=== PATIENT | male | born 1960 | race Caucasian/White ===

== ENCOUNTER 2019-11-29 07:00 | Outpatient (CLI) | payer MEDICARE, SELFPAY ==
[2019-11-29 07:15] LABS: Add Urine Microscopic? NO; Appearance Urine Clear (Clear); Basophils Absolute Auto 0.05 K/mm3 (0.00-0.10); Basophils Percent Auto 0.6 % (0.0-1.0); Bilirubin Urine Negative (Negative); Blood Urine Negative (Negative); Color Urine Yellow (Yellow); Eosinophils Absolute Auto 0.19 K/mm3 (0.02-0.50); Eosinophils Percent Auto 2.4 % (1.0-6.0); Glucose Urine UA Negative (Negative); Hematocrit 47.1 % (40.0-54.0); Immature Granulocyte Absolute 0.03 K/mm3 (0.00-0.00); Immature Granulocyte Percent A 0.4 % (0.0-0.0); Ketones Urine Negative (Negative); Leukocyte Esterase Ur Negative (Negative); Lymphocytes Absolute Auto 2.46 K/mm3 (1.10-4.50); Lymphocytes Percent Auto 31.1 % (18.0-42.0); Mean Corpuscular Hemoglobin 31.4 pg (27.0-31.0); Mean Corpuscular Volume 92.5 fL (78.0-102.0); Mean Platelet Volume 9.5 fl (8.7-11.0); Monocytes Absolute Auto 0.82 K/mm3 (0.10-0.90); Monocytes Percent Auto 10.4 % (2.0-11.0); Neutrophils Absolute Auto 4.4 K/mm3 (1.7-7.2); Neutrophils Percent Auto 55.1 % (50.0-70.0); Nitrate Urine Negative (Negative); Platelet Count Result 231 K/mm3 (150-420); Protein Urine Negative (Negative); Red Blood Count 5.09 M/mm3 (4.70-6.10); Red Cell Distribution Width 12.1 % (11.6-14.4); Specific Grav Ur 1.025 (1.010-1.020); Urobilinogen Urine 0.2 mg/dL (0.2-1.0); White Blood Count 7.9 K/mm3 (4.8-10.8); pH Urine 5.5 (5.0-8.0)
[2019-11-29 07:23] LABS: Creatinine Urine 152.87 mg/dL (40-278)
[2019-11-29 07:25] LABS: Hemoglobin A1C 6.1 % (<5.7)
[2019-11-29 07:29] LABS: MALB Creatinine Ratio 13.1 mg/g (0-30); Microalbumin Urine Random 20.1 mg/L
[2019-11-29 08:04] LABS: Alanine Aminotransferase 49 U/L (16-63); Albumin Level 3.9 g/dL (3.4-5.0); Alkaline Phosphatase 65 U/L (46-116); Anion Gap 14.3 mmol/L (7-16); Aspartate Amino Transferase 27 U/L (15-37); Bilirubin,Total 0.4 mg/dL (0.00-1.00); Blood Urea Nitrogen 13 mg/dL (7-18); Calcium 9.1 mg/dL (8.5-10.1); Carbon Dioxide 27 mmol/L (21-32); Chloride 105 mmol/L (98-108); Cholesterol 134 mg/dL (0-200); Creatine Kinase 197 U/L (39-308); Estimated Glomerular Filt Rate > 60; Glucose 99 mg/dL (70-99); HDL Direct 49 mg/dL (40-60); LDL Cholesterol Calculated 67 mg/dL (<130); Osmolality Calculated 294 mOsm/kg (285-295); Potassium 4.3 mmol/L (3.5-5.1); Sodium 142 mmol/L (136-145); Total Protein 7.5 g/dL (6.4-8.2); Triglycerides 92 mg/dL (0-150)
== END 2019-11-29 07:01 | disposition home or self-care (01) ==
PROVIDERS: PCP Internal Medicine; Visit Provider Internal Medicine
DX: E78.2 Mixed hyperlipidemia (principal); E11.9 Type 2 diabetes mellitus without complications; I10 Essential (primary) hypertension; E72.12 Methylenetetrahydrofolate reductase deficiency
CPT/HCPCS: 36415; 80053; 80061; 81003; 82043; 82550; 83036; 85025

== ENCOUNTER 2020-09-07 10:08 | Outpatient (CLI) | payer MEDICARE, SELFPAY ==
[2020-09-07 11:09] LABS: SARS-CoV-2 Ag Positive (Negative)
== END 2020-09-07 10:09 | disposition home or self-care (01) ==
LOC: CHSLAB 10:11
PROVIDERS: PCP Internal Medicine; Visit Provider Internal Medicine
DX: U07.1 COVID-19 (principal)
CPT/HCPCS: 87426

== ENCOUNTER 2020-12-21 07:17 | Outpatient (CLI) | payer MEDICARE, SELFPAY ==
[2020-12-21 07:27] LABS: Basophils Absolute Auto 0.05 K/mm3 (0.00-0.10); Basophils Percent Auto 0.6 % (0.0-1.0); Eosinophils Absolute Auto 0.21 K/mm3 (0.02-0.50); Eosinophils Percent Auto 2.5 % (1.0-6.0); Hematocrit 46.3 % (40.0-54.0); Hemoglobin 15.8 g/dL (14.0-18.0); Immature Granulocyte Absolute 0.04 K/mm3 (0.00-0.00); Immature Granulocyte Percent A 0.5 % (0.0-0.0); Lymphocytes Absolute Auto 2.62 K/mm3 (1.10-4.50); Lymphocytes Percent Auto 31.2 % (18.0-42.0); Mean Corpuscular HGB Conc 34.1 g/dL (32.0-36.0); Mean Corpuscular Hemoglobin 32.6 pg (27.0-31.0); Mean Corpuscular Volume 95.7 fL (78.0-102.0); Mean Platelet Volume 9.2 fl (8.7-11.0); Monocytes Absolute Auto 0.74 K/mm3 (0.10-0.90); Monocytes Percent Auto 8.8 % (2.0-11.0); Neutrophils Absolute Auto 4.7 K/mm3 (1.7-7.2); Neutrophils Percent Auto 56.4 % (50.0-70.0); Platelet Count Result 241 K/mm3 (150-420); Red Blood Count 4.84 M/mm3 (4.70-6.10); Red Cell Distribution Width 12.4 % (11.6-14.4); White Blood Count 8.4 K/mm3 (4.8-10.8)
[2020-12-21 07:37] LABS: Hemoglobin A1C 5.7 % (<5.7)
[2020-12-21 07:41] LABS: Add Urine Microscopic? NO; Appearance Urine Clear (Clear); Bilirubin Urine Negative (Negative); Blood Urine Negative (Negative); Color Urine Yellow (Yellow); Glucose Urine UA Negative (Negative); Ketones Urine Negative (Negative); Leukocyte Esterase Ur Negative LEU/UL (Negative); Nitrate Urine Negative (Negative); Protein Urine Negative (Negative); Specific Grav Ur 1.025 (1.010-1.020); Urobilinogen Urine 0.2 mg/dL (0.2-1.0); pH Urine 5.5 (5.0-8.0)
[2020-12-21 08:04] LABS: Creatinine Urine 135.58 mg/dL (40-278); MALB Creatinine Ratio 10.1 mg/g (0-30); Microalbumin Urine Random 13.8 mg/L
[2020-12-21 08:13] LABS: Alanine Aminotransferase 61 U/L (16-63); Albumin Level 3.6 g/dL (3.4-5.0); Alkaline Phosphatase 58 U/L (46-116); Anion Gap 6 mmol/L (8-16); Aspartate Amino Transferase 32 U/L (15-37); Bilirubin,Total 0.4 mg/dL (0.00-1.00); Blood Urea Nitrogen 15 mg/dL (7-18); Calcium 9.2 mg/dL (8.5-10.1); Carbon Dioxide 31 mmol/L (21-32); Chloride 104 mmol/L (98-108); Cholesterol 150 mg/dL (0-200); Creatine Kinase 150 U/L (39-308); Estimated Glomerular Filt Rate > 60; Glucose 102 mg/dL (70-99); HDL Direct 49 mg/dL (40-60); LDL Cholesterol Calculated 67 mg/dL (<130); Osmolality Calculated 292 mOsm/kg (285-295); Potassium 4.4 mmol/L (3.5-5.1); Sodium 141 mmol/L (136-145); Total Protein 7.2 g/dL (6.4-8.2); Triglycerides 170 mg/dL (0-150)
== END 2020-12-21 07:18 | disposition home or self-care (01) ==
LOC: CHSLAB 07:19
PROVIDERS: PCP Internal Medicine; Visit Provider Internal Medicine
DX: E11.9 Type 2 diabetes mellitus without complications (principal); E78.5 Hyperlipidemia, unspecified; I10 Essential (primary) hypertension
CPT/HCPCS: 36415; 80053; 80061; 81003; 82043; 82550; 83036; 85025

== ENCOUNTER → 2021-02-22 01:55 | Outpatient (CLI) | payer MEDICARE, SELFPAY ==
[2021-02-22 17:04] LABS: SARS-CoV-2 RNA PCR Negative
== END ==
PROVIDERS: PCP Internal Medicine; Visit Provider Internal Medicine Gastroenterology
DX: Z01.812 Encounter for preprocedural laboratory examination (principal); Z20.822 Contact with and (suspected) exposure to COVID-19
CPT/HCPCS: C9803; U0003; U0005

== ENCOUNTER 2021-02-25 00:45 | Day surgery (SDC) | payer MEDICARE, SELFPAY ==
[2021-02-12 10:36] VITALS: BMI 30.4
[2021-02-25 08:12] VITALS: BP 164/88; PULSE 93; RESP 18; TEMP 36.3; O2SAT 99; BMI 38.5
[2021-02-25] MEDS: LACTATED RINGERS 1,000 ML 150 ML IV CONT (08:23)
--- NOTE | 2021-02-25 08:32 | WPDGICN ---
GI Consult Note Consult date/time: 02/25/21 08:32 HPI: reason for visit is colonoscopy. This very pleasant gentleman seen in consultation request of the primary physician. Impression: Screening and surveillance colonoscopy. The patient has history of multiple adenomatous colon polyps and a family history of colon cancer. Obesity. HTN. HLD. Obesity. Recommendation: Colonoscopy. History: This very pleasant gentleman is a negative GI review of systems. He is here for screening and surveillance colonoscopy. He has a history of multiple adenomatous colon polyps and a family history of colon cancer. Patient is [id number]. Physical examination: General: very pleasant patient in no acute distress. HEENT: Head was normocephalic sclerae is clear mouth without masses neck was supple. Heart: Rate rhythm regular without S3 or S4. Lungs: CTA. Abdomen: Soft with no guarding or rigidity. Bowel sounds were active. Neurologic: Cranial nerves 2 through 12 intact. No focal defects. No clonus. Musculoskeletal system: Revealed no joint tenderness or swelling no muscle atrophy. Extremities: Reveal no significant edema. Skin: Warm and dry with normal turgor. Mental status: intact. Patient is alert and oriented. Review of Systems Review of Systems: All systems reviewed & are unremarkable except as noted in HPI and below PMFSH Social History Social History Smoking status: Never smoker Alcohol intake: current Drinks per week: 25 Substance use: never Substance use type: does not use Living arrangements: alone Spiritual care concerns: No Meds Home Medications and Allergies Home Medications Medication Instructions Recorded Confirmed Type aspirin 325 mg PO DAILY 02/12/21 02/12/21 History folic acid 1 mg PO DAILY 02/12/21 02/12/21 History lisinopril 20 mg PO DAILY 02/12/21 02/12/21 History metoprolol succinate 25 mg PO DAILY 02/12/21 02/12/21 History mv,Ca,iez-uexl-XC-lycopene tablet PO 02/12/21 History [Centrum Men] potassium 99 mg PO DAILY 02/12/21 02/12/21 History simvastatin 20 mg PO DAILY 02/12/21 02/12/21 History Allergies Allergy/AdvReac Type Severity Reaction Status Date / Time Penicillins Allergy Unknown Rash Verified 02/25/21 08:11 Vital Signs Vital Signs - 24 hr 02/25/21 08:12 Temperature 36.3 C L Pulse Rate 93 Respiratory Rate 18 Blood Pressure 164/88 H Pulse Oximetry 99
--- NOTE | 2021-02-25 09:14 | WPDANESEPPF ---
Anes - Initial Pre Proc Eval Procedure: Operation Date: 02/25/21 09:30 Proposed Procedures p Screening Colonoscopy - Forest Dietz DO Date/Time: 02/25/21 09:14 Surgeon: Forest Dietz DO Pre Op Diagnosis: hx of colon polyps Patient Data Age: 60 Gender: M Height: 5 ft 8 in Weight: 114.9 kg Last Vital Signs Temp 97.3 F L 02/25/21 08:12 Pulse 93 02/25/21 08:12 Resp 18 02/25/21 08:12 BP 164/88 H 02/25/21 08:12 Pulse Ox 99 02/25/21 08:12 Allergies Allergy/AdvReac Type Severity Reaction Status Date / Time Penicillins Allergy Unknown Rash Verified 02/25/21 08:11 Home Medications Medication Instructions Recorded Confirmed Type aspirin 325 mg PO DAILY 02/12/21 02/12/21 History folic acid 1 mg PO DAILY 02/12/21 02/12/21 History lisinopril 20 mg PO DAILY 02/12/21 02/12/21 History metoprolol succinate 25 mg PO DAILY 02/12/21 02/12/21 History mv,Ca,rbc-oejc-OB-lycopene tablet PO 02/12/21 History [Centrum Men] potassium 99 mg PO DAILY 02/12/21 02/12/21 History simvastatin 20 mg PO DAILY 02/12/21 02/12/21 History Patient hx anesthesia problems: none Family hx anesthesia problems: none [facility] Past Medical History Medical History (Updated 02/25/21 @ 09:08 by Jevon Archer MD) Hyperlipidemia Hypertension Social History Social History Smoking status: Never smoker Alcohol intake: current Drinks per week: 25 Substance use: never Substance use type: does not use Living arrangements: alone Spiritual care concerns: No Anes - Eval Final PreProcedure Day of Procedure 02/25/21 09:14 Patient weight: obese Heart: regular rate and rhythm Lungs: clear to auscultation Airway: Mallampati scale class III Neurological: alert and oriented Last oral intake: >/= 8 hours ASA classification: III Emergent: no Anesthetic plan: proceed Anesthesia type and monitoring: general GIVS and standard monitoring Informed Consent: The patient's anesthetic plan and its attendant risks and benefits were discussed with the patient/family/POA. Questions were solicited and answers provided to the satisfaction of the patient/family/POA.
[2021-02-25 09:50] VITALS: BP 134/84; PULSE 73; RESP 23; O2SAT 95
[2021-02-25 10:00] VITALS: BP 140/85; PULSE 83; RESP 22; O2SAT 98
[2021-02-25 10:10] VITALS: BP 167/97; PULSE 80; RESP 22; O2SAT 99
== END 2021-02-25 10:15 | disposition home or self-care (01) ==
PROVIDERS: PCP Internal Medicine; Visit Provider Internal Medicine Gastroenterology
PROC: 0DJD8ZZ Inspection of Lower Intestinal Tract, Via Natural or Artificial Opening Endoscopic (ICD-10-PCS; CPT 45378; principal; 2021-02-25 09:30)
DX: Z12.11 Encounter for screening for malignant neoplasm of colon (principal); Z86.010 Personal history of colon polyps; I10 Essential (primary) hypertension; E78.5 Hyperlipidemia, unspecified; Z79.82 Long term (current) use of aspirin; E66.9 Obesity, unspecified; Z68.38 Body mass index [BMI] 38.0-38.9, adult
CPT/HCPCS: G0105; J2704; J7120

== ENCOUNTER 2021-07-08 07:04 | Outpatient (CLI) | payer MEDICARE, SELFPAY ==
[2021-07-08 07:47] LABS: Hemoglobin A1C 5.9 % (<5.7)
[2021-07-08 08:50] LABS: Alanine Aminotransferase 67 U/L (16-63); Albumin Level 3.8 g/dL (3.4-5.0); Alkaline Phosphatase 69 U/L (46-116); Anion Gap 7 mmol/L (8-16); Aspartate Amino Transferase 39 U/L (15-37); Bilirubin,Total 0.3 mg/dL (0.00-1.00); Blood Urea Nitrogen 9 mg/dL (7-18); Calcium 8.8 mg/dL (8.5-10.1); Carbon Dioxide 31 mmol/L (21-32); Chloride 106 mmol/L (98-108); Cholesterol 122 mg/dL (0-200); Creatine Kinase 135 U/L (39-308); Estimated Glomerular Filt Rate > 60; Glucose 100 mg/dL (70-99); HDL Direct 50 mg/dL (40-60); LDL Cholesterol Calculated 56 mg/dL (<130); Osmolality Calculated 296 mOsm/kg (285-295); Potassium 4.6 mmol/L (3.5-5.1); Prostate Specific Antigen 1.1 ng/mL (< OR = 4.0); Sodium 144 mmol/L (136-145); Total Protein 7.1 g/dL (6.4-8.2); Triglycerides 78 mg/dL (0-150)
[2021-07-08 09:51] LABS: Add Urine Microscopic? NO; Appearance Urine Clear (Clear); Bilirubin Urine Negative (Negative); Blood Urine Negative (Negative); Color Urine Yellow (Yellow); Glucose Urine UA Negative (Negative); Ketones Urine Negative (Negative); Leukocyte Esterase Ur Negative (Negative); Nitrate Urine Negative (Negative); Protein Urine Negative (Negative); Specific Grav Ur 1.025 (1.010-1.020); Urobilinogen Urine 0.2 mg/dL (0.2-1.0); pH Urine 6.5 (5.0-8.0)
== END 2021-07-08 07:05 | disposition home or self-care (01) ==
LOC: CHSLAB 07:06
PROVIDERS: PCP Internal Medicine; Visit Provider Internal Medicine
DX: E11.9 Type 2 diabetes mellitus without complications (principal); I10 Essential (primary) hypertension; E78.2 Mixed hyperlipidemia; Z12.5 Encounter for screening for malignant neoplasm of prostate
CPT/HCPCS: 36415; 80053; 80061; 81003; 82550; 83036; 84153; G0103

== ENCOUNTER 2022-01-04 06:59 | Outpatient (CLI) | payer MEDICARE, SELFPAY ==
[2022-01-04 08:01] LABS: Alanine Aminotransferase 63 U/L (16-63); Albumin Level 3.9 g/dL (3.4-5.0); Alkaline Phosphatase 59 U/L (46-116); Anion Gap 7 mmol/L (8-16); Aspartate Amino Transferase 33 U/L (15-37); Bilirubin,Total 0.4 mg/dL (0.00-1.00); Blood Urea Nitrogen 13 mg/dL (7-18); Calcium 8.9 mg/dL (8.5-10.1); Carbon Dioxide 30 mmol/L (21-32); Chloride 103 mmol/L (98-108); Estimated Glomerular Filt Rate > 60; Glucose 95 mg/dL (70-99); Osmolality Calculated 290 mOsm/kg (285-295); Potassium 3.9 mmol/L (3.5-5.1); Sodium 140 mmol/L (136-145); Total Protein 7.2 g/dL (6.4-8.2)
== END 2022-01-04 07:00 | disposition home or self-care (01) ==
LOC: CHSLAB 07:01
PROVIDERS: PCP Internal Medicine; Visit Provider Internal Medicine
DX: R94.5 Abnormal results of liver function studies (principal)
CPT/HCPCS: 36415; 80053

== ENCOUNTER 2022-03-14 06:57 | Outpatient (CLI) | payer MEDICARE, SELFPAY ==
[2022-03-14 08:07] LABS: Anion Gap 7 mmol/L (8-16); Blood Urea Nitrogen 16 mg/dL (7-18); Calcium 9.2 mg/dL (8.5-10.1); Carbon Dioxide 28 mmol/L (21-32); Chloride 104 mmol/L (98-108); Estimated Glomerular Filt Rate > 60; Glucose 109 mg/dL (70-99); Osmolality Calculated 290 mOsm/kg (285-295); Sodium 139 mmol/L (136-145)
== END 2022-03-14 06:58 | disposition home or self-care (01) ==
LOC: CHSLAB 07:00
PROVIDERS: PCP Internal Medicine; Visit Provider Internal Medicine
DX: I10 Essential (primary) hypertension (principal)
CPT/HCPCS: 36415; 80048

== ENCOUNTER 2023-08-08 07:00 | Outpatient (CLI) | payer MEDICARE, SELFPAY ==
[2023-08-08 08:11] LABS: Vitamin B12 317 pg/mL (193-986)
[2023-08-11 05:08] LABS: Homocysteine 14.3 umol/L (<11.4)
[2023-08-22 13:58] LABS: Red Blood Cell Folate 509 ng/mL RBC (>280)
== END 2023-08-08 07:01 | disposition home or self-care (01) ==
LOC: CHSLAB 07:04
PROVIDERS: PCP Internal Medicine; Visit Provider Internal Medicine
DX: E72.12 Methylenetetrahydrofolate reductase deficiency (principal)
CPT/HCPCS: 36415; 82607; 82747; 83090

== ENCOUNTER 2023-10-18 08:49 | Outpatient (CLI) | payer MEDICARE, SELFPAY ==
--- NOTE | ~2023-10-18 | US_ITS ---
Limited Abdominal Sonogram: Real-time sonographic imaging of the right upper quadrant was performed. Clinical History: Abnormal liver enzymes Findings: The liver appears normal with no evidence of mass lesion or bile duct dilatation. Main por salima vein demonstrates normal direction of flow. The gallbladder is well distended, and appears normal with no evidence of gallstone or wall thickening. The common bile duct measures 3 mm. The visualize d pancreas, aorta, and IVC are unremarkable. Impression: Diffuse fatty infiltration of the liver. Reviewed, dictated and finalized at location [facility] [employer] Impression: Diffuse fatty infiltration of the liver.
== END 2023-10-18 08:50 | disposition home or self-care (01) ==
PROVIDERS: PCP Internal Medicine; Visit Provider Internal Medicine
DX: K76.0 Fatty (change of) liver, not elsewhere classified (principal); R94.5 Abnormal results of liver function studies
CPT/HCPCS: 76705

== ENCOUNTER 2024-08-12 00:18 | Day surgery (SDC) | payer MEDICARE, SELFPAY ==
[2024-08-01 12:00] VITALS: BMI 38.0
[2024-08-12 06:53] VITALS: BP 152/72; PULSE 89; RESP 20; TEMP 36.2; O2SAT 96
[2024-08-12] MEDS: LACTATED RINGERS 1,000 ML 150 ML IV CONT (07:04)
--- NOTE | 2024-08-12 07:20 | P.PNAN_ITS ---
Anes - Initial Pre Proc Eval Procedure: Operation Date: 08/12/24 08:00 Proposed Procedures p Screening Colonoscopy - Giorgio Watkins DO Date/Time: 08/12/24 07:20 Surgeon: Giorgio Watkins DO Pre Op Diagnosis: Screening for malignant neoplasm of colon Patient Data Age: 64 Gender: M Height: 1.73 m Weight: 115.2 kg Last Vital Signs Temp 36.2 C L 08/12/24 06:53 Pulse 89 08/12/24 06:53 Resp 20 08/12/24 06:53 BP 152/72 H 08/12/24 06:53 Pulse Ox 96 08/12/24 06:53 O2 Del Method Room Air 08/12/24 06:53 Allergies Allergy/AdvReac Type Severity Reaction Status Date / Time Penicillins Allergy Unknown Rash Verified 08/12/24 06:50 Home Medications Medication Instructions Recorded Confirmed Type aspirin 325 mg tablet 325 mg PO DAILY 02/12/21 08/12/24 History folic acid 1 mg tablet 1 mg PO DAILY 02/12/21 08/12/24 History lisinopril 20 mg tablet 20 mg PO DAILY 02/12/21 08/12/24 History metoprolol succinate 25 mg 25 mg PO DAILY 02/12/21 08/12/24 History tablet,extended release 24 hr simvastatin 20 mg tablet 20 mg PO DAILY 02/12/21 08/12/24 History hydrochlorothiazide 25 mg tablet 25 mg PO BID 08/01/24 08/12/24 History Patient hx anesthesia problems: none Family hx anesthesia problems: none Results Review: All pre-operative results and documents have been reviewed as part of the pre-o perative evaluation. COUNTS INCLUDE 234 BEDS AT THE [facility] Past Medical History Medical History (Updated 08/12/24 @ 07:21 by Wagner Jimenez MD) Diabetes Hyperlipidemia Hypertension Obesity Social History Social History Smoking status: Never smoker Alcohol intake: current Drinks per week: 25 Substance use: never Substance use type: does not use Living arrangements: alone Spiritual care concerns: No Anes - Eval Final PreProcedure Day of Procedure 08/12/24 07:20 Patient weight: obese Heart: regular rate and rhythm Lungs: clear to auscultation Airway: Mallampati scale class III Neurological: alert and oriented Last oral intake: >/= 8 hours ASA classification: III Emergent: no Anesthetic plan: proceed Anesthesia type and monitoring: general GIVS and standard monitoring Results Review: All pre-operative results and documents have been reviewed as part of the pre- operative evaluation. Informed Consent: The patient's anesthetic plan and its attendant risks and benefits were discussed with the patient/family/POA. Questions were solicited and answers provided to the satisfaction of the patient/family/POA.
--- NOTE | 2024-08-12 07:24 | SUR.PREOP ---
DR MCMANUS NOTIFIED THAT PT TAKES ASPIRIN 325MG AND TOOK UP UNTIL 08/11/24, NO NEW ORDERS, DR WILL SEE PT.
--- NOTE | 2024-08-12 07:49 | PM.IMHP ---
H&P: HPI History of Present Illness Date/Time: 08/12/24 07:49 Chief Complaint: history of colon polyps Narrative: this is a 64-year-old man who presents for colonoscopy. His last colonoscopy was 3 or 4 years ago. His family history of colon cancer in his mother. He denies any hematochezia or melena. Review of Systems Review of Systems: All systems reviewed & are unremarkable except as noted in HPI and below Constitutional: Constitutional: Denies chills, Denies fever(s), Denies headache(s) and Denies weight loss Eyes: Eyes: Denies change in vision ENT: Denies dizziness, Denies headache(s), Denies neck mass and Denies throat swelling Cardiovascular: Cardiovascular: Denies chest pain, Denies lightheadedness and Denies dyspnea Respiratory: Respiratory: Denies cough, Denies dyspnea and Denies wheezing Gastrointestinal: Gastrointestinal: Denies abdominal pain, Denies change in bowel habits, Denies nausea and Denies vomiting Genitourinary: Genitourinary: Denies hematuria and Denies dysuria Musculoskeletal: Musculoskeletal: Reports as per HPI Integumentary/Breasts: Skin/Breast: Reports as per HPI Neurologic: Denies dizziness and Denies headache(s) Allergic/Immunologic: Allergic/Immunologic: Denies throat swelling and Denies wheezing [facility] Past Medical History Medical History (Updated 08/12/24 @ 07:51 by Giorgio Watkins DO) Diabetes Hyperlipidemia Hypertension Obesity Social History Social History Smoking status: Never smoker Alcohol intake: current Drinks per week: 25 Substance use: never Substance use type: does not use Living arrangements: alone Spiritual care concerns: No Meds Home Medications and Allergies Home Medications Medication Instructions Recorded Confirmed Type aspirin 325 mg tablet 325 mg PO DAILY 02/12/21 08/12/24 History folic acid 1 mg tablet 1 mg PO DAILY 02/12/21 08/12/24 History lisinopril 20 mg tablet 20 mg PO DAILY 02/12/21 08/12/24 History metoprolol succinate 25 mg 25 mg PO DAILY 02/12/21 08/12/24 History tablet,extended release 24 hr simvastatin 20 mg tablet 20 mg PO DAILY 02/12/21 08/12/24 History hydrochlorothiazide 25 mg tablet 25 mg PO BID 08/01/24 08/12/24 History Allergies Allergy/AdvReac Type Severity Reaction Status Date / Time Penicillins Allergy Unknown Rash Verified 08/12/24 06:50 Vital Signs Vital Signs - 24 hr 08/12/24 06:53 Temperature 97.2 F L Pulse Rate 89 Respiratory Rate 20 Blood Pressure 152/72 H Pulse Oximetry 96 Oxygen Delivery Room Air Exam Const: General: no acute distress and alert Orientation/consciousness: patient oriented x3 HENMT: Head: normocephalic and atraumatic Ears: hearing grossly normal bilaterally Face/Nose/Sinus: Normal nares present Mouth: Yes Normal oral and palatal mucosa present Eyes: Periorbital: periorbital findings normal Sclera: sclerae normal EOM: EOMs intact bilaterally Neck: Neck: normal visual inspection, no lymphadenopathy and trachea midline Chest: Chest palpation & inspection: normal inspection of the chest Resp: Effort & Inspection: normal respiratory effort Auscultation: clear to auscultation bilaterally Cardio: Jugular venous distension: no JVD Rate: regular rate Rhythm: regular rhythm Heart sounds: S1 normal heart sound present and S2 normal heart sound present Peripheral pulses: Peripheral pulses 2+ throughout GI: Inspection: normal to inspection GI Palp: Yes Soft to palpation, No Tenderness to palpation present (GI), No Guarding due to palpation present (GI) and No Rebound tenderness present Percussion: Yes normal to percussion Auscultation: normal bowel sounds : General: Yes no CVA tenderness Back/Spine/Pelvis: Back: no CVA tenderness Neuro: General: patient oriented x3, no focal motor deficits and CN's II-XI intact bilaterally Cognition (Neuro): normal cognition Speech: normal speech Motor exam (neuro): 5/5 motor strength present throughout Extrem: General: capillary refill normal and no clubbing, cyanosis or edema Assessment and Plan Assessment and plan (1) Family hx of colon cancer: Code(s): Z80.0 - Family history of malignant neoplasm of digestive organs Status: Acute Assessment and Plan: I have recommended colonoscopy. I have discussed the procedure, risks, benefits, and alternatives. Questions were answered. Patient is agreeable to proceed.
[2024-08-12 08:17] VITALS: BP 112/67; PULSE 78; RESP 20; O2SAT 94
[2024-08-12 08:27] VITALS: BP 110/68; PULSE 76; RESP 22; O2SAT 96
[2024-08-12 08:37] VITALS: BP 129/77; PULSE 69; RESP 20; O2SAT 94
== END 2024-08-12 08:46 | disposition home or self-care (01) ==
PROVIDERS: PCP Internal Medicine; Visit Provider Surgery
PROC: 0DJD8ZZ Inspection of Lower Intestinal Tract, Via Natural or Artificial Opening Endoscopic (ICD-10-PCS; CPT 45378; principal; 2024-08-12 08:00)
DX: Z12.11 Encounter for screening for malignant neoplasm of colon (principal); D12.2 Benign neoplasm of ascending colon; D12.3 Benign neoplasm of transverse colon; K57.30 Diverticulosis of large intestine without perforation or abscess without bleeding; E78.5 Hyperlipidemia, unspecified; I10 Essential (primary) hypertension; E11.9 Type 2 diabetes mellitus without complications; E66.9 Obesity, unspecified; Z68.38 Body mass index [BMI] 38.0-38.9, adult; Z79.82 Long term (current) use of aspirin; Z80.0 Family history of malignant neoplasm of digestive organs
CPT/HCPCS: 45380; 88305; J2003; J2704; J7120

== ENCOUNTER 2025-02-27 07:21 | Outpatient (CLI) | payer MEDICARE, SELFPAY ==
--- NOTE | ~2025-02-27 | CT_ITS ---
EXAMINATION: CT abdomen w con DATE: 02/27/2025 07:46 INDICATION: Elevated liver enzymes TECHNIQUE: Computed tomography (CT) of the abdomen and pelvis was performed without intravenous contr ast. The dose-length product was 1053.78 mGy-cm. Automated exposure control and iterative reconstruct ion technique were employed. COMPARISON: CT dated 03/01/2020. FINDINGS: There is dependent atelectasis. Heart size upper normal. There is atherosclerosis. Fatty in filtration of the liver. There are calcified granulomas of the spleen. The pancreas, adrenal glands a nd left kidney are unremarkable. There are several low-density lesions of the right kidney, most like ly benign cysts. Normal appendix. Nonobstructive bowel gas pattern. Gallbladder is present. There is atherosclerosis of the aorta without aneurysm. No hydronephrosis. No free air or free fluid. Moderate lower thoracic and lumbar spondylosis with grade 1 spondylolisthesis at L5-S1 secondary to bilateral spondylolisthesis. IMPRESSION: 1. Fatty infiltration of the liver. Reviewed, dictated and finalized at location A.
== END 2025-02-27 07:22 | disposition home or self-care (01) ==
PROVIDERS: PCP Internal Medicine; Visit Provider Internal Medicine
DX: R94.5 Abnormal results of liver function studies (principal); K76.0 Fatty (change of) liver, not elsewhere classified
CPT/HCPCS: 74160; Q9967